=== PATIENT | male | born 1950 | race Caucasian/White ===

== ENCOUNTER 2022-03-23 15:33 | Inpatient (IN) | payer MEDICARE, SELFPAY ==
[2022-03-23] VITALS (25 sets, daily range): BP systolic 100–122; BP diastolic 60–71; PULSE 67–99; RESP 18–33; TEMP 36.4–37.1; O2SAT 67–100; BMI 25.7
--- NOTE | ~2022-03-23 | US_ITS ---
US renal BI 03/24/2022 14:53 Procedure: Realtime transabdominal ultrasound of the kidneys and bladder. Indication: Renal failure Comparison: No prior studies for comparison. Findings: Renal echotexture is normal bilaterally without hydronephrosis, contour deforming mass or r enal calculus. The right kidney measures 11.7 cm and left kidney measures 10.7 cm. There are bilatera l ureteral jets. Bladder within normal limits. Impression: 1: Unremarkable renal ultrasound. No stones, masses or hydronephrosis. Reviewed, dictated and finalized at location A. TRICAL SIGN SERVICER Impression: 1: Unremarkable renal ultrasound. No stones, masses or hydronephrosis.
--- NOTE | ~2022-03-23 | CT_ITS ---
EXAMINATION: CTA chest PE protocol DATE: 03/23/2022 18:38 INDICATION: Pulmonary embolism TECHNIQUE: Computed tomography angiography (CTA) of the chest was performed with 100 mL Omnipaque-350 intravenous contrast timed to evaluate the pulmonary arteries. Coronal maximum intensity projection 3D-reconstructions were created by the technologist. The dose-length product (DLP) was 309.04 mGy-cm. Automated exposure control and iterative reconstruction technique were employed. COMPARISON: X-ray chest, same date. FINDINGS: Lung parenchyma and airways: Severe emphysematous change. Segmental right basilar heterogeneous conso lidative opacity. Subsegmental left basilar opacity. Pleura: Small bilateral pleural fluid collections. Thoracic inlet, axillae and chest wall: Unremarkable. Thoracic aorta: Atherosclerotic plaque and calcification. Mediastinum: Mediastinal lymphadenopathy. Dilated central pulmonary arteries as can be seen with pulm onary arterial hypertension. Heart and pericardium: Normal. Coronary artery calcifications: Heavy. Upper abdomen: Upper abdominal lymphadenopathy. Bones: Mild anterior wedge deformity at T5 and T8, moderate vertebral body height loss at T7, all of uncertain age. Pulmonary arteries: Study quality: Adequate. No pulmonary emboli detected. IMPRESSION: No CT evidence of acute pulmonary embolus. Dependent right lower lobe consolidation suspicious for pn eumonia, this finding should be followed after appropriate therapy, to ensure resolution. Small bilat eral pleural effusions. Multilevel mid thoracic compression deformities of uncertain age, correlate w ith acute pain/tenderness. Reviewed, dictated and finalized at location K. K KILN WORKER IMPRESSION: No CT evidence of acute pulmonary embolus. Dependent right lower lobe consolida tion suspicious for pneumonia, this finding should be followed after appropriat e therapy, to ensure resolution. Small bilateral pleural effusions. Multilevel mid thoracic compression deformities of uncertain age, correlate with acute sophie n/tenderness.
--- NOTE | ~2022-03-23 | XR_ITS ---
EXAMINATION: XR chest 2V Exam Date/Time: 03/23/2022 16:30 PERFORMANCE MAKEUP ARTIST HISTORY: SOB, hypoxia, HX HTN, CKD Comparison: 10/21/2010, images only. RESULT: Lines, tubes, and devices: None. Lungs and pleura: Increased diffuse reticular opacities, more prominent in the peripheral and lower lungs. Cephalization. Mild bilateral costophrenic angle blunting. Minimal fissural thickening/fluid. Cardiomediastinal silhouette: Stable. Other: No acute upper abdominal finding. Increased moderate and mild anterior wedge deformity at two mid thoracic (likely T7 and T8 respectively) vertebral body levels, of uncertain age. IMPRESSION: 1. Pulmonary opacities may represent acute interstitial edema overlying chronic interstitial/senescen t change. Infection is not excluded. 2. Small bilateral pleural effusions versus chronic pleural parenchymal scarring. 3. Increased moderate and mild wedge deformity at two mid thoracic levels, correlate for acute pain/p oint tenderness. Reviewed, dictated and finalized at location K. ORMANCE MAKEUP ARTIST IMPRESSION: 1. Pulmonary opacities may represent acute interstitial edema overlying chronic interstitial/senescent change. Infection is not excluded. 2. Small bilateral pleural effusions versus chronic pleural parenchymal scarrin g. 3. Increased moderate and mild wedge deformity at two mid thoracic levels, guillermo elate for acute pain/point tenderness.
--- NOTE | 2022-03-23 15:42 | ECG_ITS ---
Measurements Intervals [place] Rate: 81 P: 67 SD: 141 QRS: 55 QRSD: 102 T: 58 QT: 389 QTc: 454 Interpretive Statements SINUS RHYTHM BORDERLINE ST ABNORMALITY- INFERIOR LEADS BASELINE ARTIFACT- I, II, III, AVR, AVL, AVF, V1-V6 BORDERLINE ECG NO PREVIOUS ECG AVAILABLE FOR COMPARISON Electronically Signed On 03-23-2022 16:12:32 TEMPERATURE CONTROL INSPECTOR by Jitendra Alcazar D.O.
--- NOTE | 2022-03-23 15:42 | PC.NURSE ---
Pt 67% on room air, placed on 2 L NC O2, oxy at 92% at this time. Pt denies home O2 use.
[2022-03-23 16:09] LABS: Basophils Percent Auto 0.3 % (0.2-1.2); Eosinophils Percent Auto 0.3 % (0-4.4); Hematocrit 36.4 % (42.0-52.0); Hemoglobin 12.3 g/dL (14.0-18.0); Immature Granulocyte Absolute 0.05 K/mm3 (0.00-0.031); Immature Granulocyte Percent A 0.4 % (0-0.5); Lymphocytes Absolute Auto 1.28 K/mm3 (0.9-3.2); Lymphocytes Percent Auto 9.7 % (18.3-44.2); Mean Corpuscular HGB Conc 33.8 g/dl (32-36); Mean Corpuscular Hemoglobin 32.6 pg (26-34); Mean Corpuscular Volume 96.6 fl (80-100); Mean Platelet Volume 10.4 fl (7.4-10.4); Monocytes Absolute Auto 1.1 K/mm3 (0.1-0.6); Monocytes Percent Auto 8.4 % (2.6-8.5); Neutrophils Absolute Auto 10.7 K/mm3 (1.3-6.7); Neutrophils Percent Auto 80.9 % (45.5-73.1); Nucleated Red Blood Cells Perc 0.2 % (0.0-0.2); Platelet Count Result 292 k/mm3 (150-375); Red Blood Count 3.77 M/mm3 (4.6-6.20); Red Cell Distribution Width 17.1 % (11.5-14.5); White Blood Count 13.2 K/mm3 (4.5-10.0)
--- NOTE | 2022-03-23 16:24 | ED.GENADULT ---
HPI - General Adult General Chief complaint: Shortness of Breath/Dyspnea Stated complaint: SOB Time Seen by Provider: 03/23/22 16:18 Source: patient and family History of Present Illness HPI narrative: 71 years old white male came to the emergency room by private car with his from his family physician office because of hypoxia, oxygen level at 61% on room air. History of shortness of breath, productive cough of greenish sputum since January 2022. Patient does not take oxygen at home, active smoking, does not drink or use drugs. Patient is not vaccinated for COVID. Patient is full code. History of hypertension. Related Data Allergies Allergy/AdvReac Type Severity Reaction Status Date / Time No Known Allergies Allergy Verified 03/23/22 14:37 Review of Systems Review of Systems: All systems reviewed & are unremarkable except as noted in HPI and below PMFSH Past Medical History Medical History Acute seasonal allergic rhinitis Allergic rhinitis due to other allergen Body mass index [BMI] 27.0-27.9, adult (04/06/15) Body mass index [BMI] 28.0-28.9, adult (12/22/16) Hyperglycemia Hypertension Vitamin D deficiency Social History Social History Smoking status: Smoker, status unknown Alcohol intake: never Exam Narrative: General appearance: Well-developed, well-nourished Skin: Normal color, 2+ edema lower extremity up to the knees bilaterally Head: Normocephalic, nontraumatic Eyes: Clear conjunctiva ENT: Oropharynx normal, ears normal, nose normal Neck: Supple, nontender Chest and respiratory: Airway patent, no respiratory distress, no accessory muscle use diminution of air entry bilaterally, with rales and rhonchi all over Heart: Regular rate/rhythm Abdomen: Soft, nontender, no organomegaly, quiet bowel sounds Vascular: Normal peripheral pulses, normal capillary refill. Musculoskeletal: Normal range of motion, nontender back Neurologic: Alert and oriented ?3, DUST COLLECTOR ORE CRUSHING is normal as tested, no gross motor deficit Course Course Emergency Course: Patient high likely have COPD, with cor pulmonale. Work-up today showed possible pneumonia and congestive heart failure. Elevated D-dimer could be secondary to pneumonia, congestive heart failure or NSTEMI.. Vital Signs Vital signs: Vital Signs Temperature 37.1 C 03/23/22 15:37 Pulse Rate 99 03/23/22 15:37 Respiratory Rate 24 H 03/23/22 15:37 Blood Pressure 122/60 03/23/22 15:37 Pulse Oximetry 67 L 03/23/22 15:37 Oxygen Delivery Room Air 03/23/22 15:37 Temperature 37.1 C 03/23/22 15:37 Pulse Rate 99 03/23/22 15:37 Respiratory Rate 24 H 03/23/22 15:37 Blood Pressure 122/60 03/23/22 15:37 Pulse Oximetry 94 03/23/22 16:22 Oxygen Delivery Nasal Cannula 03/23/22 16:22 Oxygen Flow Rate 2 03/23/22 16:22 Medical Decision Making Differential Diagnosis Differential Diagnosis: CHF, pneumonia, COPD, pulmonary embolism, electrolyte imbalance Vital Signs Vital Signs: Vital Signs Temperature 37.1 C 03/23/22 15:37 Pulse Rate 99 03/23/22 15:37 Respiratory Rate 24 H 03/23/22 15:37 Blood Pressure 122/60 03/23/22 15:37 Pulse Oximetry 67 L 03/23/22 15:37 Oxygen Delivery Room Air 03/23/22 15:37 Temperature 37.1 C 03/23/22 15:37 Pulse Rate 99 03/23/22 15:37 Respiratory Rate 24 H 03/23/22 15:37 Blood Pressure 122/60 03/23/22 15:37 Pulse Oximetry 94 03/23/22 16:22 Oxygen Delivery Nasal Cannula 03/23/22 16:22 Oxygen Flow Rate 2 03/23/22 16:22 Lab Data 03/23/22 15:54 03/23/22 15:54
[2022-03-23 16:44] LABS: Alveolar/Arterial O2 Gradient 47.4 mmHg; Base Excess ABG 8.5 mEq/l (+/-2.0); Carboxyhemoglobin 1.5 % THb (0-2.0); Fractional Inspired Oxygen 28 %; HCO3 ABG 35.5 mEq/l (22.0-26.0); Methemoglobin ABG 0.1 %THb (0-1.5); Oxygen Saturation ABG 95.5 % (95.0-100.0); Oxyhemoglobin 93.3 % THb (90.0-100.0); PCO2 ABG 60.6 mmHg (35.0-45.0); PO2 ABG 80.7 mmHg (80.0-100.0); PO2 FiO2 Ratio Arterial Blood 2.88 %; Reduced Hemoglobin 5.1 %THb (0-5.0); Total Hemoglobin 12.9 g/dL (12.0-18.0); pH ABG 7.386 (7.350-7.450)
[2022-03-23 16:45] LABS: Device NASAL CANNULA; Modified Allen's Test Pass; Site Drawn RIGHT RADIAL
[2022-03-23 16:52] LABS: Influenza A QL RT-PCR Negative (Negative); Influenza B QL RT-PCR Negative (Negative); RSV RNA, RT-PCR Negative (Negative); SARS-CoV-2 RNA PCR Negative
[2022-03-23 16:54] LABS: Alanine Aminotransferase 37 U/L (6-50); Albumin Level 3.7 g/dL (3.5-5.1); Alkaline Phosphatase 121 U/L (38-126); Anion Gap 6 mmol/L (8-16); Aspartate Amino Transferase 43 U/L (17-59); Bilirubin,Total 1.4 mg/dL (0.2-1.3); Blood Urea Nitrogen 40 mg/dL (9-20); Calcium 8.2 mg/dL (8.4-10.2); Carbon Dioxide 33 mmol/L (22-30); Chloride 98 mmol/L (98-107); Estimated CRCL calculation 42 ml/min; Estimated Glomerular Filt Rate 43; Glucose 112 mg/dL (65-110); Potassium 2.9 mmol/L (3.4-5.0); Sodium 137 mmol/L (137-145)
[2022-03-23 17:05] LABS: Basophils Absolute Auto 0.1 K/mm3 (0.0-0.1); Basophils Percent Auto 0.4 % (0.2-1.2); Eosinophils Absolute Auto 0.1 K/mm3 (0-0.3); Eosinophils Percent Auto 0.4 % (0-4.4); Hematocrit 36.7 % (42.0-52.0); Hemoglobin 12.1 g/dL (14.0-18.0); Immature Granulocyte Absolute 0.06 K/mm3 (0.00-0.031); Immature Granulocyte Percent A 0.5 % (0-0.5); Lymphocytes Absolute Auto 1.19 K/mm3 (0.9-3.2); Lymphocytes Percent Auto 9.6 % (18.3-44.2); Mean Corpuscular Hemoglobin 32.1 pg (26-34); Mean Corpuscular Volume 97.3 fl (80-100); Mean Platelet Volume 10.6 fl (7.4-10.4); Monocytes Absolute Auto 1.1 K/mm3 (0.1-0.6); Monocytes Percent Auto 8.6 % (2.6-8.5); Neutrophils Percent Auto 80.5 % (45.5-73.1); Platelet Count Result 287 k/mm3 (150-375); Red Blood Count 3.77 M/mm3 (4.6-6.20); Red Cell Distribution Width 17.2 % (11.5-14.5); White Blood Count 12.4 K/mm3 (4.5-10.0)
[2022-03-23 17:16] LABS: INR 1.3; Prothrombin Time 15.5 Seconds (11.1-14.7)
[2022-03-23 17:17] LABS: Partial Thromboplastin Time 31.5 SECONDS (22.3-36.8)
[2022-03-23 17:18] LABS: Magnesium 2.2 mg/dL (1.6-2.3)
[2022-03-23 17:35] LABS: D Dimer 1.78 ug/mL (<0.48)
[2022-03-23 17:36] LABS: NT Pro B Type Natriuretic Pept 10400 pg/mL (5-100); Troponin I 0.118 ng/mL (0.000-0.034)
[2022-03-23] MEDS: FUROSEMIDE INJ 40 MG/4 ML VIAL IV PUSH (18:37)
[2022-03-23] MEDS: IPRATROPIUM BR 0.02% INH SOLN 0.5 MG/2.5 ML VIAL INHALATION (19:50)
[2022-03-23] MEDS: ALBUTEROL SULFATE NEB 2.5 MG/3 ML INH 5 MG INHALATION (19:50)
--- NOTE | 2022-03-23 20:00 | PM.IMHP ---
H&P: HPI History of Present Illness Date/Time: 03/23/22 20:00 Chief Complaint: Shortness of breath. Narrative: This is a 71-year-old male with smoker with hypertension, chronic kidney disease stage 3, chronic anemia, and hyperlipidemia (no longer medication) who presented to the emergency department from his doctor's office for evaluation of shortness of breath. He endorses chronic dyspnea on exertion and it is to the point that he avoids going shopping with his and she indicates that he ?huffs and puffs? walking from the car to the house. A month ago he and his had upper respiratory symptoms including sore throat, congestion, and cough which resolved in about 1 week; they were never tested for flu or COVID. He felt better for about a week before he once again started coughing and he has had a persistent cough since that time which has been productive of green phlegm. He also endorses pleuritic pain around the ribs, more so on the right, which is worse with cough, deep inspiration, and occasionally movement. The last 3 days he has had lower extremity edema below the knees which is unusual for him. His appetite has been poor and he has not had a good bowel movement for quite some time though he has not had any nausea or vomiting. He has not had fever, chills, or sweats. He denies dysphagia and concerns for aspiration. He has not had exertional chest pain, palpitations, or sensations of racing heart. He has no known history of sleep apnea however 's reports that he snores and frequently seems to be gasping for air while asleep. On arrival to triage today his SpO2 was 61% on room air and he is currently on 2 liters nasal cannula. He has been afebrile since arrival and his vital signs have been stable. ABG showed pH of 7.36, pCO2 60.6, PO2 80.7, and bicarb of 35.5. Pertinent labs include a WBC of 12.4, troponin 0.118, proBNP 71353, sodium 137, potassium 2.9, serum carbon dioxide 33, BUN 40, creatinine 1.60. He was negative for influenza, RSV, and COVID. Chest CTA showed no evidence of acute pulmonary embolus, right lower lobe consolidation suspicious for pneumonia, small bilateral pleural effusions, and multilevel midthoracic compression fracture deformities of uncertain age. He is being admitted in this setting for IV antibiotics and further workup. Review of Systems Review of Systems: Twelve systems were reviewed and are negative except for as per HPI. [facility] Past Medical History Medical History (Updated 03/23/22 @ 23:07 by Cinthya Ferguson PA-C) Chronic anemia Chronic kidney disease, stage 3 Baseline creatinine ranges between 1.3 and 1.40. Hypercholesterolemia Previously on medication, no longer. Hypertension Suspected chronic obstructive pulmonary disease based on initial evaluation Tobacco dependence Vitamin D deficiency Surgical History Surgical History (Updated 03/23/22 @ 22:55 by Cinthya Ferguson PA-C) Amputation of right thumb History of arthroscopy of left knee History of open reduction and internal fixation (ORIF) procedure Left tibial plateau fracture. Family History Family History Mother Diabetes mellitus Sibling Diabetes mellitus Mother Cancer Social History Social History (Updated 03/23/22 @ 22:57 by Cinthya Ferguson PA-C) Social History: Surrogate medical decision maker: Brittany Noriega, spouse. Code status: Full code. Smoking packs per day: 0.5 Smoking cigarettes per day: 10.0 Years smoked: 55 Smoking pack-years: 27.50 Smoking status: Current every day smoker Tobacco type: cigarettes Additional smoking assessment comments: Smoked about 1 ppd for 50 years but recently decreased to about 0.5 ppd. Alcohol intake: never Substance use: never Lack of Transportation: No Lack of Food: Never True Current Housing: I Have Housing Concerned About Future Housing: No Difficulty Paying Gas/Electric Bills: No Difficul
[2022-03-23] MEDS: POTASSIUM CHLORIDE 20 MEQ PACKET (FOR LIQUID) 40 MEQ PO (20:16)
--- NOTE | 2022-03-23 21:28 | ADMGEN ---
This patient, Shahzad Noriega, was admitted to IMU Room 201-01. Patient/family oriented to hospital policies and general routines including ID bracelet, bed and alarms, visiting hours, pain management, procedures, bathroom and other care routines, personal items, smoking policy, room service/diet, and visiting hours. Information on how to activate the Rapid Response Team has been discussed. Patient/Family are encouraged to report perceived risks to care and to ask questions if they do not understand what they are told or what they should do.
[2022-03-23 21:38] LABS: Troponin I 0.116 ng/mL (0.000-0.034)
[2022-03-23 23:31] LABS: Magnesium 2.1 mg/dL (1.6-2.3); Potassium 3.1 mmol/L (3.4-5.0)
[2022-03-24] VITALS (19 sets, daily range): BP systolic 106–120; BP diastolic 46–63; PULSE 66–89; RESP 16–18; TEMP 36.3–37.1; O2SAT 90–100
[2022-03-24] MEDS: POTASSIUM CHLORIDE INJ 40 MEQ in SODIUM CHLORIDE 0.9% IV 500 ML 130 MEQ IVPB (00:10)
[2022-03-24] MEDS: POTASSIUM CHLORIDE 20 MEQ TABLET 40 MEQ PO (00:10)
[2022-03-24 01:14] LABS: Troponin I 0.103 ng/mL (0.000-0.034)
[2022-03-24 05:06] LABS: Anion Gap 5 mmol/L (8-16); Blood Urea Nitrogen 38 mg/dL (9-20); Calcium 7.7 mg/dL (8.4-10.2); Carbon Dioxide 33 mmol/L (22-30); Chloride 101 mmol/L (98-107); Estimated CRCL calculation 42 ml/min; Estimated Glomerular Filt Rate 43; Glucose 105 mg/dL (65-110); Potassium 3.9 mmol/L (3.4-5.0); Sodium 139 mmol/L (137-145)
[2022-03-24 05:14] LABS: Hematocrit 34.4 % (42.0-52.0); Hemoglobin 11.1 g/dL (14.0-18.0); Mean Corpuscular HGB Conc 32.3 g/dl (32-36); Mean Corpuscular Hemoglobin 31.9 pg (26-34); Mean Corpuscular Volume 98.9 fl (80-100); Mean Platelet Volume 10.6 fl (7.4-10.4); Platelet Count Result 258 k/mm3 (150-375); Red Blood Count 3.48 M/mm3 (4.6-6.20); Red Cell Distribution Width 17.2 % (11.5-14.5); White Blood Count 9.2 K/mm3 (4.5-10.0)
[2022-03-24] MEDS: FUROSEMIDE INJ 40 MG/4 ML VIAL 20 MG IV PUSH ×2 (08:38→21:11)
[2022-03-24] MEDS: POTASSIUM CHLORIDE 20 MEQ TABLET.ER 40 MEQ PO ×2 (08:39→17:29)
[2022-03-24] MEDS: METOPROLOL SUCCINATE EXT REL 100 MG TABCR BY MOUTH (08:39)
[2022-03-24] MEDS: amLODIPine BESYLATE 5 MG TABLET 10 MG BY MOUTH (08:39)
[2022-03-24] MEDS: ASPIRIN 81 MG CHEWABLE TABLET PO (08:40)
[2022-03-24] MEDS: ENOXAPARIN 40 MG/0.4 ML SYRINGE SUB-Q (08:40)
[2022-03-24] MEDS: IPRATROPIUM BR 0.02% INH SOLN 0.5 MG/2.5 ML VIAL INHALATION ×3 (09:30→21:59)
[2022-03-24] MEDS: ALBUTEROL SULFATE NEB 2.5 MG/3 ML INH 5 MG INHALATION ×3 (09:30→21:59)
[2022-03-24] MEDS: PERFLUTREN LIPID MICROSPHERES 1.5 ML VIAL DILUTED TO 10 ML TOTAL VOLUME IV PUSH (11:03)
--- NOTE | 2022-03-24 11:04 | IVDEFINITY ---
Prior to administration of IV Definity the patient was educated on the risks and benefits of the imaging enhancing agent including potential adverse side effects. The patient verbalized understanding. Allergies were verified. No exclusion criteria were identified and at least one of the following inclusion criteria were met: 1) physician request, 2) patient technically difficult to image (per the [place] [employer] guidelines of two or more segments not discernable within the apical view), or 3) questionable left ventricular function. ?
--- NOTE | 2022-03-24 16:07 | PM.IMPN ---
Progress Note: A&P Assessment and Plan (1) Acute and chronic respiratory failure: Code(s): J96.20 - Acute and chronic respiratory failure, unspecified whether with hypoxia or hypercapnia Status: Acute Assessment and Plan: Likely secondary to pneumonia & CHF exacerbation Continue oxygen per protocol to keep saturations over 90% (2) Right lower lobe pneumonia: Code(s): J18.9 - Pneumonia, unspecified organism Status: Acute Assessment and Plan: He has been started on azithromycin and ceftriaxone. Sputum to be attempted for culture. Check urinary antigens. (3) Elevated troponin: Code(s): R77.8 - Other specified abnormalities of plasma proteins Status: Acute Assessment and Plan: He has not had any chest pain and troponins have remained flat. EKG shows pretty significant artifact though no obvious significant ST changes. likely Type 2 [place]. Echocardiogram has been ordered (4) Suspected congestive heart failure: Code(s): R09.89 - Other specified symptoms and signs involving the circulatory and respiratory systems Status: Acute Assessment and Plan: Continue Lasix IV b.i.d.. Monitor intake and output and renal functions. Continue aspirin, beta-contreras (5) Chronic kidney disease, stage 3: Code(s): N18.30 - Chronic kidney disease, stage 3 unspecified Status: Acute Assessment and Plan: Check renal ultrasound (6) Chronic anemia: Code(s): D64.9 - Anemia, unspecified Status: Acute Assessment and Plan: Hemoglobin and hematocrit are stable on review of previous labs. (7) Tobacco dependence: Code(s): F17.200 - Nicotine dependence, unspecified, uncomplicated Status: Acute Assessment and Plan: Smoking cessation is imperative and was discussed. He declines the need for nicotine patch at this time. Subjective Date/time seen: 03/24/22 16:07 not short of breath at present Review of Systems Review of Systems: Twelve systems were reviewed and are negative except for as per HPI. Exam Const: Other: Chronically ill-appearing gentleman sitting up in bed. Weight: 86 kilograms. BMI: 25.7. HENMT: Other: Normocephalic, atraumatic. Nasal cannula in place. Nares patent bilaterally. Edentulous. Oral mucosa moist. Eyes: Other: Pupils are reactive. Extraocular motions intact. Sclerae anicteric. Neck: Other: Supple. Exam limited given full ayala. No obvious JVD or lymphadenopathy. Positive left-sided carotid bruit. Resp: Other: Respirations are nonlabored and he is speaking in full sentences. Currently on 2 liters nasal cannula. Lung sounds are diminished throughout with scattered crackles at the right base and faint end-expiratory wheezes. Cardio: Other: Regular rate and rhythm. GI: Other: Abdomen is soft, nontender, and nondistended with positive bowel sounds. Skin: Other: Warm and dry with generalized pallor. Neuro: Other: Alert. Cranial nerves 2-12 are grossly intact. No gross focal deficits to casual conversation. Extrem: Other: No cyanosis or clubbing. 1+ lower extremity edema below the knees. No palpable knots or cords. Negative Sohail sign. Psych: Other: Cooperative. Seems a bit anxious, at times argumentative when discussing findings and plan of care. Objective Data Vital Signs Vital Signs: Vital Signs - 24 hr 03/23/22 16:21 03/23/22 16:22 03/23/22 16:42 Temperature 98.3 F Pulse Rate 73 Respiratory Rate 18 Blood Pressure 113/71 Pulse Oximetry 94 94 100 Oxygen Delivery Nasal Cannula Nasal Cannula Oxygen Flow Rate 2 2 Fraction of Inspired Oxygen 03/23/22 17:13 03/23/22 18:43 03/23/22 19:53 Temperature Pulse Rate 67 72 69 Respiratory Rate 27 H 24 H 18 Blood Pressure 111/62 114/67 Pulse Oximetry 98 98 Oxygen Delivery Oxygen Flow Rate Fraction of Inspired Oxygen 03/23/22 19:54 03/23/22 21:15 03/23/22 16:50 Te
--- NOTE | 2022-03-24 23:07 | ECHO_ITS ---
Patient Info Name: Shahzad Noriega Age: 71 years : 1950 Gender: Male Ht: 72 in Wt: 180 lbs BSA: 2.04 m2 HR: 82 bpm BP: 106 / 61 mmHg Technical Quality: Fair Exam Date: 03/24/2022 10:54 AM Exam Location: [facility] Patient Status: Inpatient Admit Date: 03/23/2022 Staff Ordering Physician: Cinthya Ferguson PA-C Conveyor Tender: Get Odonnell RDCS, RT Attending Provider: Anthony Corado MD Referring Physician: Phyllis LUNDBERG; Exam Type: CA echo doppler color flow Study Info Indications I50.9 - Heart failure, unspecified Complete two-dimensional, color flow and Doppler transthoracic echocardiogram is performed with contrast to opacify the left ventricle and to improve the deliniation of the left ventricle endocardial borders. Summary 1. Left ventricular chamber dimension is normal. 2. Definity contrast administered improved wall motion interpretation. 3. Left ventricular systolic function is normal, estimated at 65-70%. 4. There is mildly increased left ventricular wall thickness. 5. The left ventricular diastolic function is grade I diastolic dysfunction. 6. E/e' 8 is minimally elevated. 7. There is mild aortic valve sclerosis. 8. There is mild to moderate tricuspid valve regurgitation. 9. Severe pulmonary hypertension, estimated pulmonary arterial systolic pressure is 64 mmHg. 10. Dilated inferior vena cava with >50% collapse upon inspiration consistent with elevated right atrial pressure, 10 mmHg. Left Ventricle E/e' 8 is minimally elevated. Definity contrast administered improved wall motion interpretation. Left ventricular chamber dimension is normal. Left ventricular systolic function is normal, estimated at 65-70%. There is mildly increased left ventricular wall thickness. The left ventricular diastolic function is grade I diastolic dysfunction. Right Ventricle Right ventricular systolic function is normal based on a normal TAPSE 2.5 cm. Right ventricular chamber dimension is not well visualized. Left Atria Left atrial chamber dimension is normal. Right Atria Right atrial chamber dimension is normal. Aortic Valve The aortic valve is trileaflet. There is mild aortic valve sclerosis. There is no aortic valve stenosis. There is no aortic valve regurgitation. Pulmonic Valve There is no pulmonic regurgitation. Mitral Valve There is no mitral valve stenosis. There is no mitral valve regurgitation. Tricuspid Valve There is mild to moderate tricuspid valve regurgitation. Severe pulmonary hypertension, estimated pulmonary arterial systolic pressure is 64 mmHg. Pericardium/Pleural There is no pericardial effusion. Inferior Vena Cava Dilated inferior vena cava with >50% collapse upon inspiration consistent with elevated right atrial pressure, 10 mmHg. Aorta The aortic root size at the sinus of Valsalva is not well visualized. Left Ventricular Outflow Tract Name Value Normal LVOT 2D LVOT Diameter 2.1 cm LVOT Doppler LVOT Peak Gradient 5 mmHg LVOT Mean Gradient 3 mmHg LVOT VTI
[2022-03-25] VITALS (17 sets, daily range): BP systolic 111–123; BP diastolic 58–61; PULSE 73–96; RESP 14–18; TEMP 36.2–36.4; O2SAT 68–98
[2022-03-25 08:50] LABS: Anion Gap 4 mmol/L (8-16); Blood Urea Nitrogen 27 mg/dL (9-20); Calcium 8.2 mg/dL (8.4-10.2); Carbon Dioxide 36 mmol/L (22-30); Chloride 98 mmol/L (98-107); Estimated CRCL calculation 55 ml/min; Estimated Glomerular Filt Rate 60; Glucose 115 mg/dL (65-110); Sodium 138 mmol/L (137-145)
[2022-03-25] MEDS: ALBUTEROL SULFATE NEB 2.5 MG/3 ML INH 5 MG INHALATION (09:27)
[2022-03-25] MEDS: IPRATROPIUM BR 0.02% INH SOLN 0.5 MG/2.5 ML VIAL INHALATION (09:27)
--- NOTE | 2022-03-25 09:49 | PM.DS ---
DS: Admitting Diagnosis Discharge Date 03/25/2022 Admitting Diagnosis Acute hypoxic respiratory failure, pneumonia DS: Discharge Diagnosis Discharge Diagnosis (1) Right lower lobe pneumonia: Code(s): J18.9 - Pneumonia, unspecified organism Status: Acute (2) Suspected congestive heart failure: Code(s): R09.89 - Other specified symptoms and signs involving the circulatory and respiratory systems Status: Acute (3) Suspected chronic obstructive pulmonary disease based on initial evaluation: Code(s): J44.9 - Chronic obstructive pulmonary disease, unspecified Status: Acute DS: Summary Hospital Course Hospital Course: ? 1. Left ventricular chamber dimension is normal. ? 2. Definity contrast administered improved wall motion interpretation. ? 3. Left ventricular systolic function is normal, estimated at 65-70%. ? 4. There is mildly increased left ventricular wall thickness. ? 5. The left ventricular diastolic function is grade I diastolic dysfunction. ? 6. E/e' 8 is minimally elevated. ? 7. There is mild aortic valve sclerosis. ? 8. There is mild to moderate tricuspid valve regurgitation. ? 9. Severe pulmonary hypertension, estimated pulmonary arterial systolic pressure is 64 mmHg. ? 10. Dilated inferior vena cava with >50% collapse upon inspiration consistent with elevated right atrial pressure, 10 mmHg. This is a 71-year-old male with smoker with hypertension, chronic kidney disease stage 3, chronic anemia, and hyperlipidemia (no longer medication) who presented to the emergency department from his doctor's office for evaluation of shortness of breath. he has had a persistent cough since that time which has been productive of green phlegm. He also endorses pleuritic pain around the ribs, more so on the right, which is worse with cough, deep inspiration, and occasionally movement. On arrival to triage his SpO2 was 61% on room air and he is currently on 2 liters nasal cannula. He has been afebrile since arrival and his vital signs have been stable. ABG showed pH of 7.36, pCO2 60.6, PO2 80.7, and bicarb of 35.5. Pertinent labs include a WBC of 12.4, troponin 0.118, proBNP 04225, sodium 137, potassium 2.9, serum carbon dioxide 33, BUN 40, creatinine 1.60. He was negative for influenza, RSV, and COVID. Chest CTA showed no evidence of acute pulmonary embolus, right lower lobe consolidation suspicious for pneumonia, small bilateral pleural effusions, and multilevel midthoracic compression fracture deformities of uncertain age. Patient was started on IV Rocephin azithromycin for community-acquired pneumonia. The patient was initially given IV Lasix for possible congestive heart failure exacerbation. His echo showed pulmonary hypertension. At this time patient is back to baseline. He has chronic cough which is unchanged. He is not requiring any oxygen. Patient was advised to quit smoking. He has COPD. The patient was recommended to follow up with echo technologist as an outpatient. We will discharge him home with oral Augmentin and albuterol inhaler Time Spent with Patient Time attestation: Total time spent providing and/or coordinating discharge services: Exam Const: Other: Chronically ill-appearing gentleman sitting up in bed. Weight: 86 kilograms. BMI: 25.7. HENMT: Other: Normocephalic, atraumatic. Nasal cannula in place. Nares patent bilaterally. Edentulous. Oral mucosa moist. Eyes: Other: Pupils are reactive. Extraocular motions intact. Sclerae anicteric. Neck: Other: Supple. Exam limited given full ayala. No obvious JVD or lymphadenopathy. Positive left-sided carotid bruit. Resp: Other: Respirations are nonlabored and he is speaking in full sentences. Currently on 2 liters nasal cannula. Lung sounds are diminished throughout with scattered crackles at the right base and faint end-expiratory wheezes. Cardio: Other: Regular rate and rhythm. GI: Other: Abdomen is soft, nontender, and nondiste
[2022-03-25] MEDS: FUROSEMIDE INJ 40 MG/4 ML VIAL 20 MG IV PUSH (10:37)
[2022-03-25] MEDS: amLODIPine BESYLATE 5 MG TABLET 10 MG BY MOUTH (10:37)
[2022-03-25] MEDS: METOPROLOL SUCCINATE EXT REL 100 MG TABCR BY MOUTH (10:37)
[2022-03-25] MEDS: ENOXAPARIN 40 MG/0.4 ML SYRINGE SUB-Q (10:37)
[2022-03-25] MEDS: POTASSIUM CHLORIDE 20 MEQ TABLET.ER 40 MEQ PO (10:38)
[2022-03-25] MEDS: ASPIRIN 81 MG CHEWABLE TABLET PO (10:40)
--- NOTE | 2022-03-25 13:41 | HOMEO2EVAL ---
Evaluation was performed at [facility] Home Oxygen Evaluation RC: Home Oxygen (O2) Evaluation Start: 03/25/22 09:52 Freq: ONCE Status: Active Protocol: RPE Activity Type Activity Date Activity User E-sign Co-sign Detail Recorded Client Recorded Date Recorded By Document 03/25/22 11:15 TALAT [email or web address] 03/25/22 13:41 TALAT Document 03/25/22 11:16 TALAT [email or web address] 03/25/22 13:41 TALAT Document 03/25/22 11:17 TALAT [email or web address] 03/25/22 13:41 TALAT Document 03/25/22 11:20 TALAT [email or web address] 03/25/22 13:41 TALAT Document 03/25/22 11:30 TALAT [email or web address] 03/25/22 13:41 TALAT 03/25/22 03/25/22 03/25/22 11:15 11:16 11:17 Home O2 Evaluation [Oxygen] -Test Phase Resting Resting Resting -Oxygen Delivery Room Air Nasal Cannula Nasal Cannula -Oxygen Flow Rate (L/min) 1 2 [Pulse Oximetry] -Pulse Oximetry (90-100 %) 86 L 87 L 92 [Pulse Rate] -Pulse Rate (60-100 beats/min) 78 [Comments] -Home Oxygen Evaluation Comments [Charges] -Treatment Charges O2 Evaluation - Inpatient 03/25/22 03/25/22 11:20 11:30 Home O2 Evaluation [Oxygen] -Test Phase Exercise Resting -Oxygen Delivery Nasal Cannula Nasal Cannula -Oxygen Flow Rate (L/min) 2 2 [Pulse Oximetry] -Pulse Oximetry (90-100 %) 89 L 91 [Pulse Rate] -Pulse Rate (60-100 beats/min) 89 75 [Comments] -Home Oxygen Evaluation Comments Pt requires 2L home O2 at rest and with exertion [Charges] -Treatment Charges
--- NOTE | 2022-03-25 13:51 | PCRCNOTE ---
Home o2 set up with IV respiratory care. 2 liters rest and activity
[2022-03-26 21:30] LABS: Mycoplasma IgM Antibody Titer 59 U/mL (<770)
[2022-03-27 00:01] LABS: Pneumococcal Antigen Urine Not Detected (Not Detected)
[2022-03-27 22:34] LABS: Legionella pneumophila Ag Ur Not Detected (Not Detected)
== END 2022-03-25 14:37 | disposition home or self-care (01) | DRG 280 ==
LOC: ANHED 18:53 → ANHIMU 20:34
PROVIDERS: Physician Assistant; Admitting Provider Internal Medicine; Emergency Provider Emergency Medicine; PCP Emergency Medicine; Visit Provider Hospitalist
DX: I13.0 Hypertensive heart and chronic kidney disease with heart failure and stage 1 through stage 4 chronic kidney disease, or unspecified chronic kidney disease (principal); J18.9 Pneumonia, unspecified organism; I21.A1 Myocardial infarction type 2; J96.20 Acute and chronic respiratory failure, unspecified whether with hypoxia or hypercapnia; J44.0 Chronic obstructive pulmonary disease with (acute) lower respiratory infection; N18.30 Chronic kidney disease, stage 3 unspecified; I50.9 Heart failure, unspecified; E87.6 Hypokalemia; Z20.822 Contact with and (suspected) exposure to COVID-19; F17.210 Nicotine dependence, cigarettes, uncomplicated; D64.9 Anemia, unspecified; E78.5 Hyperlipidemia, unspecified; G47.30 Sleep apnea, unspecified
CPT/HCPCS: 36415; 36600; 71046; 71275; 76775; 80048; 80053; 82375; 82805; 83050; 83735; 83880; 84132; 84443; 84484; 85025; 85027; 85380; 85610; 85730; 86738; 87040; 87070; 87205; 87449; 87637; 87899; 93005; 93306; 94618; 94640; 94762; 96374; 99291; A9270; J0456; J0696; J1650; J1940; J3480; J7040; Q9957; Q9967

== ENCOUNTER 2022-05-02 12:59 | Outpatient (CLI) | payer MEDICARE, SELFPAY ==
[2022-05-02 14:00] VITALS: PULSE 96; O2SAT 87
[2022-05-02 14:02] VITALS: O2SAT 91
[2022-05-02 14:05] VITALS: PULSE 137; O2SAT 82
[2022-05-02 14:06] VITALS: O2SAT 85
[2022-05-02 14:07] VITALS: PULSE 125; O2SAT 88
[2022-05-02 14:15] VITALS: PULSE 99; O2SAT 90
--- NOTE | 2022-05-02 14:34 | HOMEO2EVAL ---
Evaluation was performed at [facility] Home Oxygen Evaluation RC: Home Oxygen (O2) Evaluation Start: 05/02/22 14:30 Freq: Status: Active Protocol: RPE Activity Type Activity Date Activity User E-sign Co-sign Detail Recorded Client Recorded Date Recorded By Document 05/02/22 14:00 TALAT [email or web address] 05/02/22 14:34 TALAT Document 05/02/22 14:02 TALAT [email or web address] 05/02/22 14:34 TALAT Document 05/02/22 14:05 TALAT [email or web address] 05/02/22 14:34 TALAT Document 05/02/22 14:06 TALAT [email or web address] 05/02/22 14:34 TALAT Document 05/02/22 14:07 TALAT [email or web address] 05/02/22 14:34 TALAT Document 05/02/22 14:15 TALAT [email or web address] 05/02/22 14:34 TALAT 05/02/22 05/02/22 05/02/22 14:00 14:02 14:05 Home O2 Evaluation [Oxygen] -Test Phase Resting Resting Exercise -Oxygen Delivery Room Air Nasal Cannula Nasal Cannula -Oxygen Flow Rate (L/min) 2 2 [Pulse Oximetry] -Pulse Oximetry (90-100 %) 87 L 91 82 L [Pulse Rate] -Pulse Rate (60-100 beats/min) 96 137 H [Exercise] -Ambulation Distance (feet) -Ambulation Distance (meters) [Comments] -Home Oxygen Evaluation Comments [Charges] -Treatment Charges O2 Evaluation - Outpatient 05/02/22 05/02/22 05/02/22 14:06 14:07 14:15 Home O2 Evaluation [Oxygen] -Test Phase Exercise Exercise Resting -Oxygen Delivery Nasal Cannula Nasal Cannula Nasal Cannula -Oxygen Flow Rate (L/min) 4 6 2 [Pulse Oximetry] -Pulse Oximetry (90-100 %) 85 L 88 L 90 [Pulse Rate] -Pulse Rate (60-100 beats/min) 125 H 99 [Exercise] -Ambulation Distance (feet) 300 -Ambulation Distance (meters) 91.43 [Comments] -Home Oxygen Evaluation Comments Pt requires 2 l at rest and 6 l with exertion [Charges] -Treatment Charges
--- NOTE | 2022-05-02 14:35 | PCRCNOTE ---
Patient appeared more short of breath and had a productive cough. Pt was hospitalized approx 1 month ago. O2 needs at time of D/C was 2 l resting and with activity. Home O2 eval today was 2 l at rest and 6L with walk, with breaks. Pt decline ER. Stated I would let Pulmonary office know of his deteriorating condition and significant increase in O2 needs.
--- NOTE | 2022-05-02 17:28 | WPDPFTINT ---
PFT Procedure Performed PFT Procedure Performed Spirometry with Pre/Post Bronchodilator Plethysmography (Lung Vol) Diffusing Cap (DLCO) Flow Vol Loop PFT Interpretation This is a pulmonary function test with pre and post-bronchodilator spirometry, plethysmography and diffusing capacity. The test was performed and results interpreted in accordance with the 2019 and 2005 ATS/ERS Task Force guidelines respectively using the Global Lung Function Initiative-2012 reference equations. Patient demonstrated good effort and cooperation. Reproducibility criteria were met. The quality of the pre bronchodilator spirometry maneuver was Grade A and post bronchodilator spirometry maneuver was Grade A. Of note, the patient had difficulty with the expiratory limb of the pre bronchodilator spirometry. Findings: Spirometry: There is decreased maximal expiratory airflow at all lung volumes with concave expiratory flow tracing. The pre bronchodilator FVC is 2.67 L, 58% predicted. The pre bronchodilator FEV1 is 1.18 L, 34% predicted. The pre bronchodilator FEV1: FVC ratio is 44%. The post bronchodilator FVC is 3.47 L, representing a 30% increase. The post bronchodilator FEV1 is 1.22 L, representing a 3% increase. The post bronchodilator FEV1: FVC ratio is 35%. Plethysmography: The total lung capacity is 5.93 L, 78% predicted. The functional residual capacity is 4.35 L, 107% predicted. The residual volume is 2.48 L, 94% predicted. Diffusing capacity: The diffusing capacity unadjusted for hemoglobin and carboxyhemoglobin is 6.5, 24% predicted. The diffusing capacity adjusted for alveolar volume is 1.53, 41% predicted. Impression: Of note, the patient had difficulty with the expiratory limb of the pre bronchodilator spirometry. There is a combined obstructive and restrictive ventilatory abnormality. There are no guidelines to assign the severity of obstruction and restriction with a combined abnormality. In my opinion, given the severely concave expiratory flow tracing and severely decreased FEV1: FVC ratio and mild restrictive abnormality I would state there is a severe obstructive abnormality and a mild restrictive abnormality resulting in a very severe decrease in FEV1. There is significant improvement after inhaling a single dose of albuterol. The diffusing capacity unadjusted for hemoglobin and carboxyhemoglobin is severely decreased and remains moderately decreased when adjusted for alveolar volume. There are no prior studies for comparison.
== END 2022-05-02 13:00 | disposition home or self-care (01) ==
LOC: ANHPFT 13:00
PROVIDERS: Visit Provider Internal Medicine Pulmonary Disease
DX: J44.9 Chronic obstructive pulmonary disease, unspecified (principal); Z87.891 Personal history of nicotine dependence; R94.2 Abnormal results of pulmonary function studies
CPT/HCPCS: 94060; 94618; 94726; 94729

== ENCOUNTER 2022-05-03 14:00 | Inpatient (IN) | payer MEDICARE, SELFPAY ==
[2022-05-03] VITALS (41 sets, daily range): BP systolic 126–182; BP diastolic 47–80; PULSE 78–116; RESP 12–34; TEMP 36.4–36.6; O2SAT 89–100; BMI 25.2
--- NOTE | ~2022-05-03 | CT_ITS ---
EXAMINATION:CT chest high resolution wo co DATE: 05/04/2022 07:50 INDICATION: Emphysema. Abnormal chest radiographs. TECHNIQUE: Computed tomography (CT) of the chest was performed without intravenous contrast. Automate d exposure control and iterative reconstruction technique were employed. The dose-length product (DLP ) was 204.11 mGy-cm. COMPARISON: Chest CT 03/23/2022 FINDINGS: There is severe emphysema. There are dependent airspace and groundglass opacities in right lower lobe. There are dependent airspace opacities in left lower lobe. There are small pleural effusi ons, left worse than right. The heart size is normal. There are coronary artery calcifications. The c entral pulmonary arteries are enlarged, consistent with pulmonary arterial hypertension. There is mil d mediastinal and right hilar lymphadenopathy, likely reactive. Bilateral gynecomastia is noted. Ther e are multiple chronic compression fractures in thoracic spine. There is a chronic burst fracture of T5. There is a healing subacute burst fracture of T7 with 3/5 loss of height and retropulsion of bone 2 mm into central spinal canal. IMPRESSION: 1. Mild right lower lobe pneumonia with interval improvement. Stable mild airspace opacities in depen dent left lower lobe, consistent with atelectasis/scarring versus pneumonia. 2. Stable small pleural effusions, left worse than right. 3. Severe emphysema. 4. Stable mild right hilar and mediastinal lymphadenopathy, likely reactive. Reviewed, dictated and finalized at location A. T ASSOCIATE IMPRESSION: 1. Mild right lower lobe pneumonia with interval improvement. Stable mild airsp tyler opacities in dependent left lower lobe, consistent with atelectasis/scarrin g versus pneumonia. 2. Stable small pleural effusions, left worse than right. 3. Severe emphysema. 4. Stable mild right hilar and mediastinal lymphadenopathy, likely reactive.
--- NOTE | ~2022-05-03 | XR_ITS ---
EXAMINATION: XR chest 2V DATE: 05/03/2022 15:23 INDICATION: Hypoxia, hypertension TECHNIQUE: PA and lateral views of the chest are obtained. COMPARISON: 03/23/2022 FINDINGS: There are minimal airspace opacities of the lower lobes. Upper lobe predominant emphysema i s noted. No pleural effusion or pneumothorax. The cardiomediastinal silhouette is normal. Multiple th oracic compression fractures are again noted. IMPRESSION: 1. Minimal airspace opacities of the lung bases, consistent with atelectasis versus pneumonia. 2. Emphysema. Reviewed, dictated and finalized at location L. ETICS DIRECTOR IMPRESSION: 1. Minimal airspace opacities of the lung bases, consistent with atelectasis ve rsus pneumonia. 2. Emphysema.
--- NOTE | 2022-05-03 14:23 | ECG_ITS ---
Measurements Intervals [place] Rate: 95 P: 68 [place]: 150 QRS: 38 QRSD: 98 T: 61 QT: 358 QTc: 452 Interpretive Statements SINUS RHYTHM BASELINE ARTIFACT- I, II, III, AVR, AVL, AVF, V1-V6 NORMAL ECG COMPARED TO ECG 03/23/2022 15:50:03 NO SIGNIFICANT CHANGES Electronically Signed On 05-03-2022 15:16:36 COSTUME DESIGNER by Jitendra Alcazar D.O.
[2022-05-03 15:19] LABS: Basophils Percent Auto 0.3 % (0.2-1.2); Eosinophils Absolute Auto 0.1 K/mm3 (0-0.3); Hemoglobin 14.3 g/dL (14.0-18.0); Immature Granulocyte Absolute 0.04 K/mm3 (0.00-0.031); Immature Granulocyte Percent A 0.3 % (0-0.5); Lymphocytes Absolute Auto 0.87 K/mm3 (0.9-3.2); Lymphocytes Percent Auto 7.5 % (18.3-44.2); Mean Corpuscular HGB Conc 32.5 g/dl (32-36); Mean Corpuscular Hemoglobin 31.6 pg (26-34); Mean Corpuscular Volume 97.1 fl (80-100); Monocytes Absolute Auto 0.8 K/mm3 (0.1-0.6); Monocytes Percent Auto 6.8 % (2.6-8.5); Neutrophils Absolute Auto 9.7 K/mm3 (1.3-6.7); Neutrophils Percent Auto 84.1 % (45.5-73.1); Platelet Count Result 324 k/mm3 (150-375); Red Blood Count 4.53 M/mm3 (4.6-6.20); Red Cell Distribution Width 13.6 % (11.5-14.5); White Blood Count 11.5 K/mm3 (4.5-10.0)
[2022-05-03 15:29] LABS: Alanine Aminotransferase 16 U/L (6-50); Albumin Level 4.1 g/dL (3.5-5.1); Alkaline Phosphatase 134 U/L (38-126); Anion Gap 9 mmol/L (8-16); Aspartate Amino Transferase 25 U/L (17-59); Bilirubin,Total 1.5 mg/dL (0.2-1.3); Blood Urea Nitrogen 18 mg/dL (9-20); Calcium 8.4 mg/dL (8.4-10.2); Carbon Dioxide 30 mmol/L (22-30); Chloride 99 mmol/L (98-107); Estimated CRCL calculation 62 ml/min; Estimated Glomerular Filt Rate > 60; Glucose 123 mg/dL (65-110); Potassium 3.3 mmol/L (3.4-5.0); Sodium 138 mmol/L (137-145)
--- NOTE | 2022-05-03 15:57 | PC.NURSE ---
02 sat was in the 70's on his 2l after getting from wheelchair to stretcher. 02 increased to 4l NC.
--- NOTE | 2022-05-03 16:41 | ED.SOB ---
HPI - SOB/Dyspnea General Chief Complaint: Shortness of Breath/Dyspnea Stated Complaint: dyspnea Time Seen by Provider: 05/03/22 15:59 History of Present Illness HPI Narrative: Patient is a 71-year-old male with a history of COPD on 2 L nasal cannula baseline presenting with shortness of breath. Patient states that he had pulmonary function tests done yesterday and he received a call today to come to the ER. States that he has had ongoing shortness of breath but it does not feel particularly worse today. He denies any chest pain or shortness of breath. No abdominal pain, nausea or vomiting, diarrhea, leg swelling. States that he quit smoking within the last couple of months. Denies recent fevers. He does report chronic productive cough. Related Data Home Medications Medication Instructions Recorded Confirmed amlodipine 10 mg tablet (Norvasc) 10 mg PO HS 03/23/22 05/05/22 benazepril 40 mg tablet 40 mg PO HS 05/05/22 05/05/22 metoprolol succinate 100 mg 100 mg PO HS 05/05/22 05/05/22 tablet,extended release 24 hr Allergies Allergy/AdvReac Type Severity Reaction Status Date / Time No Known Allergies Allergy Verified 05/03/22 22:11 Review of Systems Review of Systems: All systems reviewed & are unremarkable except as noted in HPI and below PMFSH Past Medical History Medical History Chronic anemia Chronic kidney disease, stage 3 Baseline creatinine ranges between 1.3 and 1.40. Hypercholesterolemia Previously on medication, no longer. Hypertension Suspected chronic obstructive pulmonary disease based on initial evaluation Tobacco dependence Vitamin D deficiency Surgical History Surgical History Amputation of right thumb History of arthroscopy of left knee History of open reduction and internal fixation (ORIF) procedure Left tibial plateau fracture. Family History Family History Mother Diabetes mellitus Sibling Diabetes mellitus Mother Cancer Social History Social History Social History: Surrogate medical decision maker: Brittany Noriega, spouse. Code status: Full code. Smoking packs per day: 0.5 Smoking cigarettes per day: 10.0 Years smoked: 55 Smoking pack-years: 27.50 Smoking status: Former smoker Tobacco type: cigarettes Additional smoking assessment comments: Smoked about 1 ppd for 50 years but recently decreased to about 0.5 ppd. Alcohol intake: never Substance use: never Lack of Transportation: No Lack of Food: Never True Current Housing: I Have Housing Concerned About Future Housing: No Difficulty Paying Gas/Electric Bills: No Difficulty Paying for Meds: No Currently Unemployed: No Education: High School Diploma/GED Difficulty w/ Childcare or Family Care: No Additional living arrangements comments: The patient lives with his in [place]. 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 Spiritual care concerns: No Exam Narrative: GENERAL: Well-appearing, well-nourished, and in no acute distress. HEAD: Normocephalic, atraumatic. EYES: PERRLA and EOMI. ENT: Nares clear, no rhinorrhea or epistaxis. Mucous membranes moist. NECK: Supple. CHEST: Significantly diminished breath sounds bilaterally, very little air movement, on 2L NC HEART: Regular rate and rhythm. No murmur heard. Normal peripheral pulses. ABDOMEN: Soft, nontender, nondistended, normal active bowel sounds. EXTREMITIES: Normal range of motion. No edema. SKIN: Warm, dry, no rash. NEURO: No focal deficits. Alert and oriented x3. PSYCH: Normal mood and affect. Course Vital Signs Vital signs: Vital Signs Temperature 97.5 F L 05/03/22 14:55 Pulse Rate 110 H 05/03/22 14:55 Respiratory Rate 20 05/03/22 14:55 Blood Pressure
[2022-05-03] MEDS: ALBUTEROL SULFATE NEB 2.5 MG/3 ML INH 10 MG INHALATION (17:01)
[2022-05-03] MEDS: IPRATROPIUM BR 0.02% INH SOLN 0.5 MG/2.5 ML VIAL INHALATION ×2 (17:01→20:05)
[2022-05-03 18:00] LABS: Influenza A QL RT-PCR Negative (Negative); Influenza B QL RT-PCR Negative (Negative); RSV RNA, RT-PCR Negative (Negative); SARS-CoV-2 RNA PCR Negative
[2022-05-03] MEDS: methylPREDNISolone SOD SUCC 125 MG VIAL IV PUSH (18:29)
--- NOTE | 2022-05-03 19:53 | PM.IMHP ---
H&P: HPI History of Present Illness Date/Time: 05/03/22 19:53 Chief Complaint: Low oxygen Narrative: This is a 71-year-old male with past medical history significant for chronic kidney disease, dyslipidemia, hypertension, patient comes to the emergency room after he was found to have a low oxygen saturation he is on 2 L by nasal cannula since February of 2022 recent pulmonary function status were significant for combination of severe obstructive and mild restrictive disease. Patient noted copious secretions of greenish sputum, no fevers, no rigors, no chills. Patient denies any chest pain, leg swelling, states that he was told to come to the emergency room for evaluation although he was not feeling sick. Preliminary workup was significant for: A chest x-ray was reported as: FINDINGS: There are minimal airspace opacities of the lower lobes. Upper lobe predominant emphysema is noted. No pleural effusion or pneumothorax. The cardiomediastinal silhouette is normal. Multiple thoracic compression fractures are again noted. IMPRESSION: 1. Minimal airspace opacities of the lung bases, consistent with atelectasis versus pneumonia. 2. Emphysema. Review of Systems Review of Systems: Low oxygen saturation, copious amount of greenish sputum. Constitutional: Constitutional: Denies chills, Denies fatigue, Denies fever(s), Denies lethargy, Denies malaise, Denies night sweats, Denies poor appetite and Denies weakness Eyes: Eyes: Denies change in vision ENT: Denies dysphagia, Denies vertigo, Denies dizziness and Denies odynophagia Cardiovascular: Cardiovascular: Denies chest pain, Denies leg edema, Denies lightheadedness, Denies radiating jaw, neck or arm pain and Denies palpitations Respiratory: Respiratory: Denies chest congestion and Reports excessive phlegm production Gastrointestinal: Gastrointestinal: Reports abdominal pain, Denies dyspepsia, Denies heartburn, Denies diarrhea, Denies nausea and Denies vomiting Genitourinary: Genitourinary: Denies dysuria Musculoskeletal: Musculoskeletal: Denies back pain, Denies joint swelling and Denies muscle weakness Integumentary/Breasts: Skin/Breast: Denies rash Neurologic: Denies vertigo, Denies dizziness, Denies focal weakness and Denies Sensory deficit (Neuro) Psychiatric: Psychiatric: Reports no additional psychiatric complaints and Reports as per HPI Endocrine: Endocrine: Denies cold intolerance, Denies flushing, Denies heat intolerance, Denies polyphagia, Denies polydipsia and Denies palpitations Hematologic/Lymphatic: Hematologic/Lymphatic: Reports no additional hematologic/lymphatic complaints and Reports as per HPI Allergic/Immunologic: Allergic/Immunologic: Reports no additional allergic/immunologic complaints and Reports as per HPI PMF Past Medical History Medical History Chronic anemia Chronic kidney disease, stage 3 Baseline creatinine ranges between 1.3 and 1.40. Hypercholesterolemia Previously on medication, no longer. Hypertension Suspected chronic obstructive pulmonary disease based on initial evaluation Tobacco dependence Vitamin D deficiency Surgical History Surgical History Amputation of right thumb History of arthroscopy of left knee History of open reduction and internal fixation (ORIF) procedure Left tibial plateau fracture. Family History Family History Mother Diabetes mellitus Sibling Diabetes mellitus Mother Cancer Social History Social History Social History: Surrogate medical decision maker: Brittany Noriega, spouse. Code status: Full code. Smoking packs per day: 0.5 Smoking cigarettes per day: 10.0 Years smoked: 55 Smoking pack-years: 27.50 Smoking status: Former smoker Tobacco type: cigarettes Addit
[2022-05-03] MEDS: ALBUTEROL SULFATE NEB 2.5 MG/3 ML INH 5 MG INHALATION (20:05)
--- NOTE | 2022-05-03 20:48 | PC.NURSE ---
assumed care of pt. at this time. report from Maggie WOOD
--- NOTE | 2022-05-03 21:44 | ADMGEN ---
This patient, Shahzad Noriega, was admitted to Medical Room 340-01. Patient/family oriented to hospital policies and general routines including ID bracelet, bed and alarms, visiting hours, pain management, procedures, bathroom and other care routines, personal items, smoking policy, room service/diet, and visiting hours. Information on how to activate the Rapid Response Team has been discussed. Patient/Family are encouraged to report perceived risks to care and to ask questions if they do not understand what they are told or what they should do.
[2022-05-04] VITALS (16 sets, daily range): BP systolic 141–146; BP diastolic 56–70; PULSE 75–110; RESP 18–22; TEMP 36.3–36.7; O2SAT 92–95
[2022-05-04] MEDS: IPRATROPIUM BR 0.02% INH SOLN 0.5 MG/2.5 ML VIAL INHALATION ×4 (04:04→22:05)
[2022-05-04] MEDS: ALBUTEROL SULFATE NEB 2.5 MG/3 ML INH 5 MG INHALATION ×2 (04:04→08:32)
--- NOTE | 2022-05-04 04:36 | PCRCNOTE ---
Window of time for administration has passed. See next scheduled administration. Pertaining to the 6 updraft treatment.
[2022-05-04] MEDS: methylPREDNISolone SOD SUCC 40 MG VIAL IV PUSH (05:24)
--- NOTE | 2022-05-04 10:15 | PM.IMPN ---
Progress Note: A&P Assessment and Plan (1) Pneumonia: Code(s): J18.9 - Pneumonia, unspecified organism Status: Acute Assessment and Plan: CT of the chest shows PNA in the left lower lobe and right lower lobe Continue Levaquin, convert to PO Supplemental oxygen, wean to maintain saturations >90% Sputum culture ordered WBC 14.8, most likely related to the steroids Trend labs Adjust therapy as indicated (2) COPD with exacerbation: Code(s): J44.1 - Chronic obstructive pulmonary disease with (acute) exacerbation Status: Acute Assessment and Plan: patient reports increased cough with sputum production changes in color of sputum, dyspnea with exertion and increased shortness of breath currently on 2 L Systemic steroids DC due to no wheezing Breathing treatments changed to Xopenex Continue levofloxacin PO Copious amount of greenish sputum sputum culture pending white blood cell count elevated 14.8, most likely related to steroids continue trend labs (3) Acute and chronic respiratory failure: Code(s): J96.20 - Acute and chronic respiratory failure, unspecified whether with hypoxia or hypercapnia Status: Acute Assessment and Plan: Patient is on 2 L of oxygen by nasal cannula reported shortness of breath with activity saturations upon arrival or mid 70s patient was unable to do regular activities Try and keep oxygen saturation at 90% (4) Chronic kidney disease, stage 3: Code(s): N18.30 - Chronic kidney disease, stage 3 unspecified Status: Acute Assessment and Plan: Stable BUN/Cr at 20/1.20 Continue to monitor BUN and creatinine Avoid nephrotoxic medications Trend labs Renal dose medications as appropriate (5) Tobacco dependence: Code(s): F17.200 - Nicotine dependence, unspecified, uncomplicated Status: Acute Assessment and Plan: Patch and gum available Education given Patient stated he has quit (6) Tachycardia: Code(s): R00.0 - Tachycardia, unspecified Status: Acute Assessment and Plan: HR has been 90-150s Home metoprolol was not restarted Restarted and will give one dose of metoprolol now Continue tele Trend heart rate adjust therapy as indicated (7) Hypertension: Code(s): I10 - Essential (primary) hypertension Status: Acute Assessment and Plan: BP is 124/75 Continue home metoprolol, amlodipine and benazepril Trend BP adjust therapy as indicated Plan Watch overnight for any further heart rate issues Time Spent With Patient Time with patient: Greater than 35 minutes Subjective Date/time seen: 05/05/22 1015 Interval history: 05/05/22 1015 Patient stated that he feels okay today. He did state that he was having a little bit of pain on the right mid axillary very high almost in the armpit which was reproducible by palpation. Patient denied any nausea, vomiting, diarrhea, constipation. Patient did state that he was feeling little congested. He also stated that he has been coughing up green thick sputum. However he states that has been a whole lot just enough. He also reports his heart rate being high as the nurses were explained to him. Nursing stated that the patient did get up to the bathroom and when he was there his heart rate got is a 150s. Patient inquired about his blood pressure medicines that have not been restarted. Patient was on metoprolol which would make sense on why his heart rate is high. Currently patient appears comfortable. He is currently on 2 L as well. WBCs are slightly elevated at 14.8 most likely related to steroid use. Will give patient 1 dose of metoprolol tartrate and schedule his meds for this evening. 05/04/22 1100 Patient is doing ok. He denies any chest pain, shortness of breath, nausea, vomiting, diarrhea, constipat
--- NOTE | 2022-05-04 10:15 | P.PNIM_ITS ---
Progress Note: A&P Assessment and Plan (1) Pneumonia: Code(s): J18.9 - Pneumonia, unspecified organism Status: Acute Assessment and Plan: * CT of the chest shows PNA in the left lower lobe and right lower lobe * Continue Levaquin, convert to PO * Supplemental oxygen, wean to maintain saturations >90% * Sputum culture ordered * WBC 14.8, most likely related to the steroids * Trend labs * Adjust therapy as indicated (2) COPD with exacerbation: Code(s): J44.1 - Chronic obstructive pulmonary disease with (acute) exacerbation Status: Acute Assessment and Plan: * patient reports increased cough with sputum production changes in color of sputum, dyspnea with exertion and increased shortness of breath * currently on 2 L * Systemic steroids DC due to no wheezing * Breathing treatments changed to Xopenex * Continue levofloxacin PO * Copious amount of greenish sputum * sputum culture pending * white blood cell count elevated 14.8, most likely related to steroids * continue trend labs (3) Acute and chronic respiratory failure: Code(s): J96.20 - Acute and chronic respiratory failure, unspecified whether with hypoxia or hypercapnia Status: Acute Assessment and Plan: * Patient is on 2 L of oxygen by nasal cannula * reported shortness of breath with activity * saturations upon arrival or mid 70s * patient was unable to do regular activities * Try and keep oxygen saturation at 90% (4) Chronic kidney disease, stage 3: Code(s): N18.30 - Chronic kidney disease, stage 3 unspecified Status: Acute Assessment and Plan: * Stable BUN/Cr at 20/1.20 * Continue to monitor BUN and creatinine * Avoid nephrotoxic medications * Trend labs * Renal dose medications as appropriate (5) Tobacco dependence: Code(s): F17.200 - Nicotine dependence, unspecified, uncomplicated Status: Acute Assessment and Plan: * Patch and gum available * Education given * Patient stated he has quit (6) Tachycardia: Code(s): R00.0 - Tachycardia, unspecified Status: Acute Assessment and Plan: * HR has been 90-150s * Home metoprolol was not restarted * Restarted and will give one dose of metoprolol now * Continue tele * Trend heart rate * adjust therapy as indicated (7) Hypertension: Code(s): I10 - Essential (primary) hypertension Status: Acute Assessment and Plan: * BP is 124/75 * Continue home metoprolol, amlodipine and benazepril * Trend BP * adjust therapy as indicated Plan Watch overnight for any further heart rate issues Time Spent With Patient Time with patient: Greater than 35 minutes Subjective Date/time seen: 05/05/22 1015 Interval history: 05/05/22 1015 Patient stated that he feels okay today. He did state that he was having a little bit of pain on the right mid axillary very high almost in the armpit which was reproducible by palpation. Patient denied any nausea, vomiting, diarrhea, constipation. Patient did state that he was feeling little congested. He also stated that he has been coughing up green thick sputum. However he states that has been a whole lot just enough. He also reports his heart rate being high as the nurses were explained to him. Nursing stated that the patient
--- NOTE | 2022-05-04 11:00 | PM.IMPN ---
Progress Note: A&P Assessment and Plan (1) Pneumonia: Code(s): J18.9 - Pneumonia, unspecified organism Status: Acute Assessment and Plan: CT of the chest shows PNA in the left lower lobe and right lower lobe Continue Levaquin, convert to PO Supplemental oxygen, wean to maintain saturations >90% Sputum culture ordered WBC 11.5 Trend labs Adjust therapy as indicated (2) COPD with exacerbation: Code(s): J44.1 - Chronic obstructive pulmonary disease with (acute) exacerbation Status: Acute Assessment and Plan: patient reports increased cough with sputum production changes in color of sputum, dyspnea with exertion and increased shortness of breath currently on 2 L Systemic steroids DC due to no wheezing Breathing treatments changed to Xopenex Started on levofloxacin Copious amount of greenish sputum sputum culture ordered white blood cell count 11.5 continue trend labs (3) Acute and chronic respiratory failure: Code(s): J96.20 - Acute and chronic respiratory failure, unspecified whether with hypoxia or hypercapnia Status: Acute Assessment and Plan: Patient is on 2 L of oxygen by nasal cannula reported shortness of breath with activity saturations upon arrival or mid 70s patient was unable to do regular activities Try and keep oxygen saturation at 90% (4) Chronic kidney disease, stage 3: Code(s): N18.30 - Chronic kidney disease, stage 3 unspecified Status: Acute Assessment and Plan: Stable BUN/Cr at 18/1.10 Continue to monitor BUN and creatinine Avoid nephrotoxic medications Trend labs Renal dose medications as appropiate (5) Tobacco dependence: Code(s): F17.200 - Nicotine dependence, unspecified, uncomplicated Status: Acute Assessment and Plan: Patch and gum available Education given Patient stated he has quit Time Spent With Patient Time with patient: Greater than 35 minutes Subjective Date/time seen: 05/04/22 11:00 Interval history: 05/04/22 1100 Patient is doing ok. He denies any chest pain, shortness of breath, nausea, vomiting, diarrhea, constipation, weakness or fatigue. He did state that he is able to walk and is able to get around without severe shortness of breath. He also feels that he is back to his baseline. Heart rate is a bit elevated, switched to Xopenex. 05/03/22? 19:53 This is a 71-year-old male with past medical history significant for chronic kidney disease, dyslipidemia, hypertension, patient comes to the emergency room after he was found to have a low oxygen saturation he is on 2 L by nasal cannula since February of 2022 recent pulmonary function status were significant for combination of severe obstructive and mild restrictive disease.? Patient noted copious secretions of greenish sputum, no fevers, no rigors, no chills.? Patient denies any chest pain, leg swelling, states that he was told to come to the emergency room for evaluation although he was not feeling sick.? Review of Systems Review of Systems: All systems reviewed & are unremarkable except as noted in HPI and below Exam Narrative: General: well-nourished, well-appearing 71-year-old male, laying in bed, comfortable, NARD Neuro: awake, alert and oriented x4, speech clear, no focal neuro deficits noted HEENMT: normocephalic, atraumatic, EOMI, sclerae anicteric, moist oral mucosa Respiratory: Clear to auscultation bilaterally without crackles, rhonchi or wheezes, nonlabored breathing Cardio: tachycardiac, regular rhythm with S1-S2 Abdomen: nondistended, normoactive bowel sounds, soft, nontender to palpation Extremities: no edema, erythema, or tenderness to palpation, DP pulses 2+ bilaterally Skin: no rashes or lesions, warm and dry Psych: appropriate mood and affect, judgment and insight intact Objective Data Vital Signs Vital Signs: Vital
--- NOTE | 2022-05-04 11:00 | P.PNIM_ITS ---
Progress Note: A&P Assessment and Plan (1) Pneumonia: Code(s): J18.9 - Pneumonia, unspecified organism Status: Acute Assessment and Plan: * CT of the chest shows PNA in the left lower lobe and right lower lobe * Continue Levaquin, convert to PO * Supplemental oxygen, wean to maintain saturations >90% * Sputum culture ordered * WBC 11.5 * Trend labs * Adjust therapy as indicated (2) COPD with exacerbation: Code(s): J44.1 - Chronic obstructive pulmonary disease with (acute) exacerbation Status: Acute Assessment and Plan: * patient reports increased cough with sputum production changes in color of sputum, dyspnea with exertion and increased shortness of breath * currently on 2 L * Systemic steroids DC due to no wheezing * Breathing treatments changed to Xopenex * Started on levofloxacin * Copious amount of greenish sputum * sputum culture ordered * white blood cell count 11.5 * continue trend labs (3) Acute and chronic respiratory failure: Code(s): J96.20 - Acute and chronic respiratory failure, unspecified whether with hypoxia or hypercapnia Status: Acute Assessment and Plan: * Patient is on 2 L of oxygen by nasal cannula * reported shortness of breath with activity * saturations upon arrival or mid 70s * patient was unable to do regular activities * Try and keep oxygen saturation at 90% (4) Chronic kidney disease, stage 3: Code(s): N18.30 - Chronic kidney disease, stage 3 unspecified Status: Acute Assessment and Plan: * Stable BUN/Cr at 18/1.10 * Continue to monitor BUN and creatinine * Avoid nephrotoxic medications * Trend labs * Renal dose medications as appropiate (5) Tobacco dependence: Code(s): F17.200 - Nicotine dependence, unspecified, uncomplicated Status: Acute Assessment and Plan: * Patch and gum available * Education given * Patient stated he has quit Time Spent With Patient Time with patient: Greater than 35 minutes Subjective Date/time seen: 05/04/22 11:00 Interval history: 05/04/22 1100 Patient is doing ok. He denies any chest pain, shortness of breath, nausea, vomiting, diarrhea, constipation, weakness or fatigue. He did state that he is able to walk and is able to get around without severe shortness of breath. He also feels that he is back to his baseline. Heart rate is a bit elevated, switched to Xopenex. 05/03/22? 19:53 This is a 71-year-old male with past medical history significant for chronic kidney disease, dyslipidemia, hypertension, patient comes to the emergency room after he was found to have a low oxygen saturation he is on 2 L by nasal cannula since February of 2022 recent pulmonary function status were significant for combination of severe obstructive and mild restrictive disease.? Patient noted copious secretions of greenish sputum, no fevers, no rigors, no chills.? Patient denies any chest pain, leg swelling, states that he was told to come to the emergency room for evaluation although he was not feeling sick.? Review of Systems Review of Systems: All systems reviewed & are unremarkable except as noted in HPI and below Exam Narrative: General: well-nourished, well-appearing 71-year-old male, laying in bed, comfortable, NARD Neuro: awake, alert and oriented x4, speech clear, no focal neuro deficits noted H
[2022-05-05] VITALS (20 sets, daily range): BP systolic 124–152; BP diastolic 69–77; PULSE 66–136; RESP 16–18; TEMP 36.5–36.7; O2SAT 91–96
[2022-05-05] MEDS: IPRATROPIUM BR 0.02% INH SOLN 0.5 MG/2.5 ML VIAL INHALATION ×4 (03:03→20:04)
[2022-05-05 05:58] LABS: Basophils Percent Auto 0.1 % (0.2-1.2); Eosinophils Percent Auto 0.1 % (0-4.4); Hematocrit 38.2 % (42.0-52.0); Hemoglobin 12.7 g/dL (14.0-18.0); Immature Granulocyte Absolute 0.06 K/mm3 (0.00-0.031); Immature Granulocyte Percent A 0.4 % (0-0.5); Lymphocytes Absolute Auto 0.73 K/mm3 (0.9-3.2); Lymphocytes Percent Auto 4.9 % (18.3-44.2); Mean Corpuscular HGB Conc 33.2 g/dl (32-36); Mean Corpuscular Hemoglobin 31.3 pg (26-34); Mean Corpuscular Volume 94.1 fl (80-100); Mean Platelet Volume 9.6 fl (7.4-10.4); Monocytes Absolute Auto 0.6 K/mm3 (0.1-0.6); Monocytes Percent Auto 4.3 % (2.6-8.5); Neutrophils Absolute Auto 13.4 K/mm3 (1.3-6.7); Neutrophils Percent Auto 90.2 % (45.5-73.1); Platelet Count Result 288 k/mm3 (150-375); Red Blood Count 4.06 M/mm3 (4.6-6.20); Red Cell Distribution Width 13.6 % (11.5-14.5); White Blood Count 14.8 K/mm3 (4.5-10.0)
[2022-05-05 06:13] LABS: Alanine Aminotransferase 17 U/L (6-50); Albumin Level 3.3 g/dL (3.5-5.1); Alkaline Phosphatase 98 U/L (38-126); Anion Gap 3 mmol/L (8-16); Aspartate Amino Transferase 27 U/L (17-59); Bilirubin,Total 0.7 mg/dL (0.2-1.3); Blood Urea Nitrogen 20 mg/dL (9-20); Calcium 8.6 mg/dL (8.4-10.2); Carbon Dioxide 31 mmol/L (22-30); Chloride 102 mmol/L (98-107); Estimated CRCL calculation 57 ml/min; Estimated Glomerular Filt Rate 60; Glucose 132 mg/dL (65-110); Potassium 3.8 mmol/L (3.4-5.0); Sodium 136 mmol/L (137-145)
[2022-05-05] MEDS: levoFLOXacin 750 MG TABLET PO (08:13)
[2022-05-05] MEDS: METOPROLOL TARTRATE 50 MG TAB PO (12:25)
--- NOTE | 2022-05-05 18:40 | PC.NURSE ---
Per lab, sputum specimen could not be tested because it was frozen. Unknown reason. Not send down frozen from this unit.
[2022-05-05] MEDS: amLODIPine BESYLATE 5 MG TABLET 10 MG PO (20:30)
[2022-05-05] MEDS: lisinopriL 20 MG TABLET 40 MG PO (20:30)
[2022-05-05] MEDS: METOPROLOL SUCCINATE EXT REL 100 MG TABCR PO (20:30)
[2022-05-06] MEDS: IPRATROPIUM BR 0.02% INH SOLN 0.5 MG/2.5 ML VIAL INHALATION (02:36)
[2022-05-06 02:37] VITALS: PULSE 81; RESP 18
[2022-05-06 03:04] VITALS: PULSE 80; RESP 18
[2022-05-06 04:00] VITALS: PULSE 80
[2022-05-06 05:20] LABS: Basophils Percent Auto 0.2 % (0.2-1.2); Eosinophils Percent Auto 0.4 % (0-4.4); Hematocrit 40.7 % (42.0-52.0); Hemoglobin 12.9 g/dL (14.0-18.0); Immature Granulocyte Absolute 0.03 K/mm3 (0.00-0.031); Immature Granulocyte Percent A 0.3 % (0-0.5); Lymphocytes Absolute Auto 1.45 K/mm3 (0.9-3.2); Lymphocytes Percent Auto 13.8 % (18.3-44.2); Mean Corpuscular HGB Conc 31.7 g/dl (32-36); Mean Corpuscular Hemoglobin 30.9 pg (26-34); Mean Corpuscular Volume 97.6 fl (80-100); Mean Platelet Volume 9.8 fl (7.4-10.4); Monocytes Absolute Auto 0.8 K/mm3 (0.1-0.6); Monocytes Percent Auto 7.1 % (2.6-8.5); Neutrophils Absolute Auto 8.2 K/mm3 (1.3-6.7); Neutrophils Percent Auto 78.2 % (45.5-73.1); Platelet Count Result 283 k/mm3 (150-375); Red Blood Count 4.17 M/mm3 (4.6-6.20); Red Cell Distribution Width 13.5 % (11.5-14.5); White Blood Count 10.5 K/mm3 (4.5-10.0)
[2022-05-06 05:32] LABS: Alanine Aminotransferase 22 U/L (6-50); Albumin Level 3.3 g/dL (3.5-5.1); Alkaline Phosphatase 92 U/L (38-126); Anion Gap 6 mmol/L (8-16); Aspartate Amino Transferase 36 U/L (17-59); Blood Urea Nitrogen 27 mg/dL (9-20); Calcium 8.4 mg/dL (8.4-10.2); Carbon Dioxide 31 mmol/L (22-30); Chloride 100 mmol/L (98-107); Estimated CRCL calculation 46 ml/min; Estimated Glomerular Filt Rate 46; Glucose 91 mg/dL (65-110); Magnesium 2.1 mg/dL (1.6-2.3); Potassium 3.4 mmol/L (3.4-5.0); Sodium 137 mmol/L (137-145)
[2022-05-06 05:54] VITALS: BP 144/71; PULSE 64; RESP 16; TEMP 36.6; O2SAT 97
[2022-05-06] MEDS: levoFLOXacin 750 MG TABLET PO (08:47)
[2022-05-06] MEDS: SODIUM CHLORIDE 0.9% IV 500 ML 999 ML IV CONT (08:48)
[2022-05-06 09:00] VITALS: PULSE 70; O2SAT 97
--- NOTE | 2022-05-06 11:00 | PM.DS ---
DS: Admitting Diagnosis Discharge Date 05/06/22 1100 Admitting Diagnosis PNA, COPD DS: Discharge Diagnosis Discharge Diagnosis (1) Pneumonia: Code(s): J18.9 - Pneumonia, unspecified organism Status: Acute Assessment and Plan: CT of the chest shows PNA in the left lower lobe and right lower lobe Continue Levaquin, convert to PO Supplemental oxygen, wean to maintain saturations >90% Sputum culture ordered WBC down to 10.5 Trend labs Adjust therapy as indicated (2) COPD with exacerbation: Code(s): J44.1 - Chronic obstructive pulmonary disease with (acute) exacerbation Status: Acute Assessment and Plan: patient reports increased cough with sputum production changes in color of sputum, dyspnea with exertion and increased shortness of breath currently on 2 L Systemic steroids DC due to no wheezing Breathing treatments changed to Xopenex Continue levofloxacin PO Copious amount of greenish sputum sputum culture not performed due to lab receiving sample frozen white blood cell count down to 10.5 continue trend labs Will add Anoro Ellipta at discharge and Xopenex inhaler (3) Acute and chronic respiratory failure: Code(s): J96.20 - Acute and chronic respiratory failure, unspecified whether with hypoxia or hypercapnia Status: Acute Assessment and Plan: Patient is on 2 L of oxygen by nasal cannula reported shortness of breath with activity saturations upon arrival or mid 70s patient was unable to do regular activities Try and keep oxygen saturation at 90% (4) Chronic kidney disease, stage 3: Code(s): N18.30 - Chronic kidney disease, stage 3 unspecified Status: Acute Assessment and Plan: Stable BUN/Cr at 27/1.50 Seems to be just slightly higher, however baseline appears to be 1.2-1.6 Continue to monitor BUN and creatinine Avoid nephrotoxic medications Trend labs Renal dose medications as appropriate (5) Tobacco dependence: Code(s): F17.200 - Nicotine dependence, unspecified, uncomplicated Status: Acute Assessment and Plan: Patch and gum available Education given Patient stated he has quit (6) Tachycardia: Code(s): R00.0 - Tachycardia, unspecified Status: Acute Assessment and Plan: HR has been stable at 60-80 Home metoprolol was not restarted Continue tele Trend heart rate adjust therapy as indicated (7) Hypertension: Code(s): I10 - Essential (primary) hypertension Status: Acute Assessment and Plan: BP is 144/71 Continue home metoprolol, amlodipine and benazepril Trend BP adjust therapy as indicated Plan Watch overnight for any further heart rate issues DS: Summary Hospital Course Hospital Course: Patient is a 71-year-old male with a past medical history of hypertension, anemia, CKD who presented to the ED with complaints of low oxygen saturations. Patient is on 2 L nasal cannula at baseline. CT of the chest showed pneumonia left lower lobe and right lower lobe. WBCs were elevated upon arrival and did trend up however most likely related to steroid use. Current WBCs is 10.5. Patient did report increased sputum production and cough however stated that he never really felt any different. Patient has been able to move around and has been doing well since admission. Patient was started on IV Levaquin which has been converted to p.o. Levaquin at this time. Heart rate was noted to be elevated however home medications were not reviewed and restarted. after home medications were restarted patient's heart rate has returned back to normal rate and is baseline. Patient has no complaints including chest pain, shortness a breath, nausea, vomiting, diarrhea, constipation, weakness or fatigue. Patient did state that he is eating and is able to move around. Patient is stabl
--- NOTE | 2022-05-06 11:00 | P.DS_ITS ---
DS: Admitting Diagnosis Discharge Date 05/06/22 1100 Admitting Diagnosis PNA, COPD DS: Discharge Diagnosis Discharge Diagnosis (1) Pneumonia: Code(s): J18.9 - Pneumonia, unspecified organism Status: Acute Assessment and Plan: * CT of the chest shows PNA in the left lower lobe and right lower lobe * Continue Levaquin, convert to PO * Supplemental oxygen, wean to maintain saturations >90% * Sputum culture ordered * WBC down to 10.5 * Trend labs * Adjust therapy as indicated (2) COPD with exacerbation: Code(s): J44.1 - Chronic obstructive pulmonary disease with (acute) exacerbation Status: Acute Assessment and Plan: * patient reports increased cough with sputum production changes in color of sputum, dyspnea with exertion and increased shortness of breath * currently on 2 L * Systemic steroids DC due to no wheezing * Breathing treatments changed to Xopenex * Continue levofloxacin PO * Copious amount of greenish sputum * sputum culture not performed due to lab receiving sample frozen * white blood cell count down to 10.5 * continue trend labs * Will add Anoro Ellipta at discharge and Xopenex inhaler (3) Acute and chronic respiratory failure: Code(s): J96.20 - Acute and chronic respiratory failure, unspecified whether with hypoxia or hypercapnia Status: Acute Assessment and Plan: * Patient is on 2 L of oxygen by nasal cannula * reported shortness of breath with activity * saturations upon arrival or mid 70s * patient was unable to do regular activities * Try and keep oxygen saturation at 90% (4) Chronic kidney disease, stage 3: Code(s): N18.30 - Chronic kidney disease, stage 3 unspecified Status: Acute Assessment and Plan: * Stable BUN/Cr at 27/1.50 * Seems to be just slightly higher, however baseline appears to be 1.2-1.6 * Continue to monitor BUN and creatinine * Avoid nephrotoxic medications * Trend labs * Renal dose medications as appropriate (5) Tobacco dependence: Code(s): F17.200 - Nicotine dependence, unspecified, uncomplicated Status: Acute Assessment and Plan: * Patch and gum available * Education given * Patient stated he has quit (6) Tachycardia: Code(s): R00.0 - Tachycardia, unspecified Status: Acute Assessment and Plan: * HR has been stable at 60-80 * Home metoprolol was not restarted * Continue tele * Trend heart rate * adjust therapy as indicated (7) Hypertension: Code(s): I10 - Essential (primary) hypertension Status: Acute Assessment and Plan: * BP is 144/71 * Continue home metoprolol, amlodipine and benazepril * Trend BP * adjust therapy as indicated Plan Watch overnight for any further heart rate issues DS: Summary Hospital Course Hospital Course: Patient is a 71-year-old male with a past medical history of hypertension, anemia, CKD who presented to the ED with complaints of low oxygen saturations. Patient is on 2 L nasal cannula at baseline. CT of the chest showed pneumonia left lower lobe and right lower lobe. WBCs were elevated upon arrival and did trend up however most likely related to steroid use. Current WBCs is 10.5. Patient did report increased sputum production and cough however stated that he never really
[2022-05-06] MEDS: FLUTICASONE/SALMETEROL 115-21 MCG INHALER 1 PUFF 2 PUFF INHALATION (11:36)
[2022-05-06 11:41] VITALS: PULSE 82; RESP 18
[2022-05-06] MEDS: PSYLLIUM POWDER PACKET 1 PACKET PO (12:36)
== END 2022-05-06 12:50 | disposition home or self-care (01) | DRG 193 ==
LOC: ANHED 16:34 → ANH3MED 20:42
PROVIDERS: Admitting Provider Internal Medicine; Emergency Provider Emergency Medicine; PCP Emergency Medicine; Visit Provider Nurse Practitioner
DX: J18.9 Pneumonia, unspecified organism (principal); J96.20 Acute and chronic respiratory failure, unspecified whether with hypoxia or hypercapnia; J44.1 Chronic obstructive pulmonary disease with (acute) exacerbation; J44.0 Chronic obstructive pulmonary disease with (acute) lower respiratory infection; I12.9 Hypertensive chronic kidney disease with stage 1 through stage 4 chronic kidney disease, or unspecified chronic kidney disease; N18.30 Chronic kidney disease, stage 3 unspecified; F17.200 Nicotine dependence, unspecified, uncomplicated; F17.210 Nicotine dependence, cigarettes, uncomplicated; Z20.822 Contact with and (suspected) exposure to COVID-19; Z79.899 Other long term (current) drug therapy; Z83.3 Family history of diabetes mellitus
CPT/HCPCS: 36415; 71046; 71250; 80053; 83735; 85025; 87070; 87205; 87637; 93005; 94060; 94618; 94640; 94726; 94729; 96365; 96375; 96376; 99285; A9270; G0378; J1956; J2920; J2930; J7040

== ENCOUNTER 2022-06-20 10:29 | Outpatient (CLI) | payer MEDICARE, SELFPAY ==
--- NOTE | ~2022-06-20 | XR_ITS ---
XR chest 2V 06/20/2022 10:48 Indication: Pneumonia. Procedure: 2 view chest Comparison: 05/03/2022 Findings: Heart size is normal. There is mild pulmonary vascular congestion. There is mild interstiti al edema. There are multiple mid thoracic compression fractures which appear chronic. The lungs are h yperinflated which is consistent with, but not diagnostic of chronic obstructive pulmonary disease. Impression: 1: Mild interstitial edema. Reviewed, dictated and finalized at location B. HOIST OPERATOR Impression: 1: Mild interstitial edema.
== END 2022-06-20 10:30 | disposition home or self-care (01) ==
PROVIDERS: Visit Provider Internal Medicine Pulmonary Disease
DX: J84.9 Interstitial pulmonary disease, unspecified (principal)
CPT/HCPCS: 71046

== ENCOUNTER 2024-01-20 22:58 | Emergency (ER) | payer MEDICARE, SELFPAY ==
--- NOTE | 2024-01-20 23:18 | PC.NURSE ---
Pt arrived to ED cardiac arrest CPR in progress. All ACLS protocol followed BLOOD COORDINATOR 18G L AC and IO in L leg initiated BLOOD COORDINATOR. 18RAC initiated at time of arrival Pt on Preston EDP Dr. Navas at bedside for entirety of code. 225 Epi IVP 2258- Bicarb given IVP 2300 Epi IVP 230- pt intubated by EDP Dr. Navas. 7.5 ET tube, tube 23 at the lip- positive color change, bilateral breath sounds heard 2299- Epi IVP 230- pulse check- no pulse PEA on monitor 2302 Epi IVP 230 - pulse check - no pulse, PEA for short period 2304- asystole 2304- code called by EDP.
--- NOTE | 2024-01-20 23:46 | PC.NURSE ---
mts notified of patient at 2696. . not able to decide on home and requested that patient be held in the [facility]
--- NOTE | 2024-01-21 00:01 | PC.NURSE ---
[facility] contacted
--- NOTE | 2024-01-21 07:41 | ED.CPR ---
HPI - CPR General Chief Complaint: Cardiac Arrest/CPR Stated Complaint: full arrest History of Present Illness HPI narrative: 73-year-old male with a past medical history of hypertension and COPD presents as a witnessed cardiac arrest. EMS was called to scene after his heard a loud thud in the restroom and went to go check on the patient. He was slumped over on the toilet and was just conversational moments prior. No bystander CPR was performed. EMS had 8 minute arrival time. Initial rhythm interventricular, no shocks advised. Continue CPR was underway and he was given 5 mg in total of epinephrine prior to arrival to our emergency department. Left-sided tibial IO was placed by EMS, peripheral access obtained by staff. Fluid bolus provided by EMS. Patient was made a medical resuscitation at this time for CPR in progress. Collateral information unavailable besides the EMS report. Related Data Allergies Allergy/AdvReac Type Severity Reaction Status Date / Time No Known Allergies Allergy Verified 10/31/23 11:08 Review of Systems Review of Systems: ROS unobtainable: Yes unobtainable due to medical condition [facility] Past Medical History Medical History Acute hypokalemia NICOLETTE (acute kidney injury) BMI 25.0-25.9,adult Chronic anemia Chronic kidney disease, stage 3 Baseline creatinine ranges between 1.3 and 1.40. Hypercholesterolemia Previously on medication, no longer. Hypertension Screening PSA (prostate specific antigen) Suspected chronic obstructive pulmonary disease based on initial evaluation Tobacco dependence Upper respiratory tract infection Vitamin D deficiency Surgical History Surgical History Amputation of right thumb History of arthroscopy of left knee History of open reduction and internal fixation (ORIF) procedure Left tibial plateau fracture. Family History Family History Mother Diabetes mellitus Cancer Breast cancer Sibling Diabetes mellitus Cancer, Onset Age: 60 liver Father , emphysema-tobacco abuse No problems noted. Social History Social History Social History: Surrogate medical decision maker: Brittany Noriega, spouse. Code status: Full code. Smoking packs per day: 0.5 Smoking cigarettes per day: 10.0 Years smoked: 55 Smoking pack-years: 27.50 Smoking status: Former smoker Tobacco type: cigarettes Second hand tobacco smoke exposure: Yes Additional smoking assessment comments: Smoked about 1 ppd for 50 years but recently decreased to about 0.5 ppd. Alcohol intake: never Substance use: never Substance use type: does not use Do You Feel Safe in your Home?: Yes Lack of Transportation: No Lack of Food: Never True Current Housing: I Have Housing Concerned About Future Housing: No Difficulty Paying Gas/Electric Bills: No Difficulty Paying for Meds: No Currently Unemployed: No Education: Trade/Vocational Certificate Difficulty w/ Childcare or Family Care: No Living arrangements: with family Additional living arrangements comments: The patient lives with his in [place]. 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 Gender identity (if verbalized by the patient): Male Spiritual care concerns: No Exam Narrative: GENERAL: Cardiac arrest, GCS 3 HEAD: [Normocephalic, atraumatic.] EYES: Pupils 4 mm, nonreactive= CHEST: BVM breath sounds bilaterally, Preston in place. Carlos airway in place HEART: Transmitted carotid pulsations from the Preston device, cold extremities ABDOMEN: [Soft, nondistended], [No rigidity or guarding] EXTREMITIES: Normal range of motion. [No edema.] SKIN: Cool and dry NEURO:
== END 2024-01-20 23:05 | disposition expired ==
PROVIDERS: Emergency Provider Student in an Organized Health Care Education/Training Program; PCP Emergency Medicine
DX: I46.9 Cardiac arrest, cause unspecified (principal); I12.9 Hypertensive chronic kidney disease with stage 1 through stage 4 chronic kidney disease, or unspecified chronic kidney disease; N18.30 Chronic kidney disease, stage 3 unspecified; D64.9 Anemia, unspecified; E55.9 Vitamin D deficiency, unspecified; F17.210 Nicotine dependence, cigarettes, uncomplicated; Z89.011 Acquired absence of right thumb; Z79.899 Other long term (current) drug therapy
CPT/HCPCS: 31500; 92950; 96374; 99285; J0171